=== PATIENT | male | born 1965 | race Caucasian/White ===

== ENCOUNTER 2016-10-20 17:40 | Inpatient (IN) | payer OTHER ==
[~2016-10-20] VITALS: Ht 165.1 cm; Wt 110.5 kg
[2016-10-20 19:00] LABS: HEMATOCRIT 46.6 % (38.0-50.0); MCH 27.4 PG (29.0-34.0); MCHC 33.9 G/DL (30.0-36.0); MCV 80.8 FL (86-99); MEAN PLAT.VOLUME 9.2 uM^3 (9.0-12.4); PLATELET COUNT 193 K/uL (156-360); RBC DIS.WIDTH-CV 14.2 % (11.8-14.6); RBC DIS.WIDTH-SD 40.9 % (39-53); RED BLOOD COUNT 5.77 M/uL (4.00-5.50); WHITE BLOOD COUNT 18.2 K/uL (4.1-10.2)
[2016-10-20 19:08] LABS: CHLORIDE 107 mEq/L (99-109); SODIUM 139 mEq/L (136-147)
[2016-10-20 19:10] LABS: GLUCOSE 191 mg/dL (70-99)
[2016-10-20 19:11] LABS: ANION GAP 9 MEQ/L (2-14)
[2016-10-20 19:14] LABS: UREA NITROGEN (BUN) 14 mg/dL (9-23)
[2016-10-20 19:24] LABS: GFR ESTIMATE (CALCULATED) > 59 mL/min/
[2016-10-20] MEDS ORDERED: TRADJENTA5 MG PO (21:51)
[2016-10-20] MEDS ORDERED: INJECTION (21:51)
[2016-10-20] MEDS ORDERED: METFORMIN HCL1000 MG PO (21:52)
[2016-10-20] MEDS ORDERED: SYNTHROID25 MCG PO (21:52)
[2016-10-20] MEDS ORDERED: COMTAN200 MG PO ×6 (21:52→21:53)
[2016-10-20] MEDS ORDERED: TIGAN300 MG PO (21:53)
[2016-10-20] MEDS ORDERED: CARBIDOPA/LEVO1 EACH PO ×6 (21:54→21:55)
[2016-10-20] MEDS ORDERED: AZILECT1 MG PO (21:55)
[2016-10-20] MEDS ORDERED: SANCTURA20 MG PO (21:55)
[2016-10-20 22:54] VITALS: BP 143/73
[2016-10-21 00:44] VITALS: BP 158/80
[2016-10-21 05:34] VITALS: BP 119/66
[2016-10-21 07:39] LABS: MCH 27.9 PG (29.0-34.0); MCHC 34.3 G/DL (30.0-36.0); MCV 81.3 FL (86-99); MEAN PLAT.VOLUME 9.2 uM^3 (9.0-12.4); PLATELET COUNT 197 K/uL (156-360); RBC DIS.WIDTH-CV 14.4 % (11.8-14.6); RBC DIS.WIDTH-SD 41.8 % (39-53); RED BLOOD COUNT 5.66 M/uL (4.00-5.50); WHITE BLOOD COUNT 17.8 K/uL (4.1-10.2)
[2016-10-21 08:02] LABS: ALKALINE PHOSPHATASE 85 IU/L (3-129); ANION GAP 6 MEQ/L (2-14); CHLORIDE 109 MEQ/L (99-109); GFR ESTIMATE (CALCULATED) > 59 mL/min/; GLUCOSE 168 mg/dL (70-99); SAMPLE HEMOLYSIS CHECK 0; SAMPLE ICTERIC CHECK 0; SAMPLE LIPEMIA CHECK 0; SODIUM 141 MEQ/L (136-147); UREA NITROGEN (BUN) 12 mg/dL (9-23)
[2016-10-21 08:07] VITALS: BP 128/69
[2016-10-21 12:14] LABS: POINT-OF-CARE METER ID UU14188577
[2016-10-21 12:42] VITALS: BP 132/81
[2016-10-21] MEDS ORDERED: APOKYN SC (15:32)
[2016-10-21 16:20] VITALS: BP 126/67
[2016-10-21 17:26] LABS: POINT-OF-CARE METER ID UU14208753
[2016-10-21 21:34] LABS: POINT-OF-CARE METER ID UU14208753
[2016-10-21 22:31] LABS: ADD MIUA? NO; BILIRUBIN NEGATIVE; BLOOD NEGATIVE; COLOR AMBER ((YELLOW)); GLUCOSE (STRIP) NEGATIVE; KETONES 5; LEUKOCYTES NEGATIVE; NITRITE NEGATIVE; PROTEIN (STRIP) 30; SPECIFIC GRAVITY 1.027 (1.000-1.030); UCUL ADDED? NO; UROBILINOGEN 0.2 MG/DL (0.2-1.0)
[2016-10-22 00:43] VITALS: BP 147/77
[2016-10-22 06:28] LABS: POINT-OF-CARE METER ID UU14208753
[2016-10-22 06:58] LABS: HEMATOCRIT 43.3 % (38.0-50.0); MCH 28.4 PG (29.0-34.0); MCHC 34.6 G/DL (30.0-36.0); MCV 81.9 FL (86-99); MEAN PLAT.VOLUME 9.9 uM^3 (9.0-12.4); PLATELET COUNT 201 K/uL (156-360); RBC DIS.WIDTH-CV 14.5 % (11.8-14.6); RBC DIS.WIDTH-SD 43.1 % (39-53); RED BLOOD COUNT 5.29 M/uL (4.00-5.50)
[2016-10-22 07:37] LABS: ANION GAP 7 MEQ/L (2-14); CHLORIDE 108 MEQ/L (99-109); GFR ESTIMATE (CALCULATED) > 59 mL/min/; GLUCOSE 128 mg/dL (70-99); POTASSIUM 3.8 MEQ/L (3.7-5.4); SAMPLE HEMOLYSIS CHECK 0; SAMPLE ICTERIC CHECK 0; SAMPLE LIPEMIA CHECK 0; SODIUM 140 MEQ/L (136-147); UREA NITROGEN (BUN) 14 mg/dL (9-23)
[2016-10-22 08:47] LABS: ANISOCYTOSIS 1+; ATYPICAL LYMPHOCYTE 1.7 %; EOSINOPHILS 2.6 % (0-5.0); LYMPHOCYTES 50.9 % (15.0-45.0); PLAT.SUFFICIENCY ADEQUATE; SEG.NEUTROPHILS 37.1 % (46.0-76.0)
[2016-10-22 16:17] LABS: POINT-OF-CARE METER ID UU14208753
[2016-10-22 21:43] LABS: POINT-OF-CARE METER ID UU14208753
[2016-10-22 23:32] VITALS: BP 129/75
[2016-10-23 06:05] LABS: HEMATOCRIT 44.3 % (38.0-50.0); MCH 28.1 PG (29.0-34.0); MCHC 34.3 G/DL (30.0-36.0); MEAN PLAT.VOLUME 9.5 uM^3 (9.0-12.4); PLATELET COUNT 191 K/uL (156-360); RBC DIS.WIDTH-CV 14.5 % (11.8-14.6); RBC DIS.WIDTH-SD 42.4 % (39-53); WHITE BLOOD COUNT 14.1 K/uL (4.1-10.2)
[2016-10-23 06:32] LABS: ANION GAP 6 MEQ/L (2-14); CHLORIDE 106 MEQ/L (99-109); GFR ESTIMATE (CALCULATED) > 59 mL/min/; GLUCOSE 136 mg/dL (70-99); POTASSIUM 4.1 MEQ/L (3.7-5.4); SAMPLE HEMOLYSIS CHECK 0; SAMPLE ICTERIC CHECK 0; SAMPLE LIPEMIA CHECK 0; SODIUM 139 MEQ/L (136-147); UREA NITROGEN (BUN) 10 mg/dL (9-23)
[2016-10-23 06:41] LABS: POINT-OF-CARE METER ID UU14188577
[2016-10-23 07:36] LABS: ABS NEUTROPHIL COUNT 4.4; EOSINOPHIL ABS CT 0; HEMATOLOGY COMMENT 1 SMEAR COMPATIBLE; INSTRUMENT ABS NEUTROPHIL CT 4.3 K/uL; PLAT.SUFFICIENCY ADEQUATE
[2016-10-23 08:06] VITALS: BP 119/72
[2016-10-23 11:48] LABS: POINT-OF-CARE METER ID UU14208753
[2016-10-24 15:41] LABS: Flow Clinical Information NOT PROVIDED (()); Flow Number of Markers 23 (()); Flow Spec Viability 95 % (()); Flow Specimen Type NOT PROVIDED (())
== END 2016-10-23 14:13 | disposition home or self-care (01) | DRG 57 ==
LOC: EME 17:40 → EDOF 21:39 → ENRESERV 21:39 → 3EAST 21:39 → EDOF 21:48 → ENRESERV 22:02 → 3EAST 22:47
PROVIDERS: Hospitalist; Internal Medicine; Internal Medicine Hematology & Oncology; Physician Assistant
DX: G20 Parkinson's disease (principal); C85.90 Non-Hodgkin lymphoma, unspecified, unspecified site; E11.9 Type 2 diabetes mellitus without complications; E03.9 Hypothyroidism, unspecified; G89.29 Other chronic pain; M54.9 Dorsalgia, unspecified; E66.9 Obesity, unspecified; Z68.41 Body mass index [BMI] 40.0-44.9, adult; Z91.14 Patient's other noncompliance with medication regimen; Z79.84 Long term (current) use of oral hypoglycemic drugs; Z83.3 Family history of diabetes mellitus
CPT/HCPCS: 71010; 71260; 72050; 72131; 74177; 80048; 80053; 81003; 82948; 85007; 85025; 85027; 88184 90; 88185 90; 88189 90; 93005; 99281; 99285; J1650; J1815; J7030